=== PATIENT | male | born 1985 | race Caucasian/White ===

== ENCOUNTER 2017-12-07 23:13 | Emergency (ER) | payer OTHER ==
--- NOTE | 2017-12-08 00:34 | NUR ---
Patient left without being triaged. Patient states they will follow up with their PMD in the morning. Patient states they were referred by [facility] to come to this ER due to saturation. Patient states they do not want to wait to be seen and will follow up with their PMD in the morning.
== END 2017-12-08 00:37 | disposition left against medical advice (07) ==
LOC: ER 23:16
DX: Z53.21 Procedure and treatment not carried out due to patient leaving prior to being seen by health care provider (principal)